=== PATIENT | male | born 1965 | race Caucasian/White ===

== ENCOUNTER 2024-02-28 08:57 | Day surgery (SDC) | payer OTHER ==
[~2024-02-28] VITALS: Ht 157.5 cm; Wt 68.8 kg
[~2024-02-28 08:57] MED LIST: GUAI600T33 PO; NS 500 ML IV SCH; Saw Palmetto160 MG PR; Zocor10 MG PO
[2024-02-28 09:35] VITALS: BP 127/81
[2024-02-28] MEDS ORDERED: propofoL 20 ML IV ONE (09:45)
[2024-02-28] MEDS ORDERED: Midazolam HCl 1MG / ML 2ML Vial ONE (09:45)
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
[2024-02-28] MEDS ORDERED: Midazolam HCl 1MG / ML 2ML Vial IV ONE (09:50)
--- NOTE | 2024-02-28 09:53 | NUR ---
02/28/24 0953 Ayleen Zepeda CONFIRMED AND REVIEWED H&P, MEDCICATIONS, ALLERGIES, MEDICAL HISTORY, RESPIRATORY HISTORY, VITAL SIGNS, 3-LEAD EKG, CONSENTS, AND PHYSICIAN ORDERS. PATIENT CONFIRMS NPO STATUS AND AGREES WITH SCHEDULED PROCEDURE. MONITOR INTACT WITH CONTINUOUS PULSE OXIMETRY, CAPNOGRAPHY, 3-LEAD EKG, INTERMITTENT BP. SUPPLEMENTAL O2 TO BE TITRATED THROUGHOUT PROCEDURE TO MAINTAIN O2 SATURATION ABOVE 90%. PATIENT DETERMINED TO BE ASA APPROPRIATE FOR PROPOFOL SEDATION PRIOR TO START OF PROCEDURE BY DR. BROCK.
[2024-02-28 10:13] VITALS: BP 118/75
--- NOTE | 2024-02-28 10:13 | NUR ---
PT TO DAY SURGERY STEP DOWN FROM COLONOSCOPY; BEDSIDE REPORT RECEIVED. PT IS AWAKE, ALERT AND ORIENTED; ABLE TO MOVE SELF IN BED. PT SISTER AT BEDSIDE.
--- NOTE | 2024-02-28 10:23 | NUR ---
PT DECLINES PO FLUIDS. Discharge instructions reviewed with patient. Patient verbalizes understanding. Copy given to patient to take home. Patient States Post-Procedure ride home has been arranged.
[2024-02-28 10:28] VITALS: BP 116/97
--- NOTE | 2024-02-28 10:36 | NUR ---
Patient up to Ambulate independently. Gait steady. Discharged via wheelchair to private car for ride home.
== END 2024-02-28 10:36 | disposition home or self-care (01) ==
LOC: ORSCMMR 08:57 → ORD 10:00 → ORSCMMR 10:36
PROVIDERS: Internal Medicine Gastroenterology
PROC: 0DJD8ZZ Inspection of Lower Intestinal Tract, Via Natural or Artificial Opening Endoscopic (ICD-10-PCS; principal; 2024-02-28 10:00)
DX: Z12.11 Encounter for screening for malignant neoplasm of colon (principal); K57.30 Diverticulosis of large intestine without perforation or abscess without bleeding; E78.00 Pure hypercholesterolemia, unspecified; Z14.8 Genetic carrier of other disease; Z79.899 Other long term (current) drug therapy; F17.210 Nicotine dependence, cigarettes, uncomplicated
CPT/HCPCS: J2250; J2704; J7040